=== PATIENT | female | born 2000 | race Caucasian/White ===

== ENCOUNTER 2022-07-18 09:32 | Inpatient (IN) | payer OTHER ==
[2022-07-18] MEDS ORDERED: Butorphanol Tartrate 1 MG/ML VIAL SLOW IVP PRN (10:25)
[2022-07-18] MEDS ORDERED: Lactated Ringer's 1,000 ML IV SCH ×3 (10:30→10:45)
[2022-07-18] MEDS ORDERED: hydrALAZINE 20 MG/ML VIAL SLOW IVP PRN ×2 (10:33→14:44)
[2022-07-18] MEDS ORDERED: Bicitra 30 ML UDCUP PO PRN (10:33)
[2022-07-18] MEDS ORDERED: Famotidine/PF 20 mg/2ml Vial SLOW IVP PRN (10:33)
[2022-07-18] MEDS ORDERED: Ondansetron PF 4 MG/2 ML Vial IVP PRN ×2 (10:33→13:45)
[2022-07-18] MEDS ORDERED: Promethazine HCl 25 MG/ML VIAL IM PRN ×2 (10:33→13:45)
[2022-07-18] MEDS ORDERED: CEFAZOLIN 2 GM in Sodium Chloride 0.9% 100 ML IVPB SCH (10:45)
[2022-07-18 10:53] VITALS: BMI 39.4
[2022-07-18 12:22] LABS: %Basophils 0.2 % (0.0-2.0); %Eosinophils 0.1 % (0.0-6.0); %Lymphocytes 8.3 % (18.0-47.0); %Neutrophils 85.3 % (40.0-75.0); Hemoglobin 13.4 g/dL (12.0-15.5); Mean Corpuscular HGB CONC 34.8 g/dL (32.0-36.0); Mean Corpuscular Hemoglobin 31.7 pg (27.0-33.0); Mean Platelet Volume 9.7 fl (7.4-10.4); Platelet Count 354 10x3/uL (150-450); RBC Distribution Width 13.1 % (11.5-14.5); Red Blood Cell (RBC) Count 4.23 10x6/uL (3.90-5.03)
[2022-07-18 12:44] LABS: ALT (SGPT) 50 U/L (8-55); AST (SGOT) 27 U/L (5-34); Albumin 3.2 g/dL (3.5-5.0); Alkaline Phosphatase 178 U/L (40-110); Anion Gap 16 mmol/L (10-20); BUN (Urea Nitrogen) 12 mg/dL (7.0-18.7); Bilirubin, Total 0.3 mg/dL (0.2-1.2); Calc. Creatinine Clearance 232 mL/min (70-130); Calcium 9.8 mg/dL (7.8-10.44); Carbon Dioxide 21 mmol/L (22-29); Chloride 105 mmol/L (98-107); Estimated GFR 128; Globulin 2.9 g/dL (2.4-3.5); Glucose 72 mg/dL (70-105); Potassium 4.6 mmol/L (3.5-5.1); Protein, Total 6.1 g/dL (6.0-8.3); Sodium 137 mmol/L (136-145)
[2022-07-18 12:53] LABS: Syphilis Antibody Nonreactive (Nonreactive); Syphilis Antibody Index 0.05 S/CO (<1.00 Non-Reactive)
[2022-07-18 12:55] LABS: HBSAg Index 0.15 S/CO (0-0.99); Hep B Surf Ag Non-Reactive S/CO (NonReactive)
[2022-07-18] MEDS ORDERED: Communication Order-Pharmacy FS SCH (13:45)
[2022-07-18] MEDS ORDERED: Meperidine HCl/PF 25 MG/ML VIAL SLOW IVP PRN (13:45)
[2022-07-18] MEDS ORDERED: diphenhydrAMINE 50 MG/ML VIAL IVP PRN (13:45)
[2022-07-18] MEDS ORDERED: Naloxone HCl 0.4 mg/ml Vial IV PRN (13:45)
[2022-07-18] MEDS ORDERED: Naloxone HCl 0.4 mg/ml Vial IVP PRN ×2 (13:45)
[2022-07-18] MEDS ORDERED: Promethazine HCl 25 MG SUPP PR PRN (13:45)
[2022-07-18] MEDS ORDERED: Ketorolac Tromethamine 30 MG/ML VIAL IVP SCH (13:45)
[2022-07-18] MEDS ORDERED: Moisturizing Cream (Eucerin) 113 GM JAR TOP PRN (13:45)
[2022-07-18] MEDS ORDERED: Ondansetron HCl/PF 4 MG/2 ML Vial IVP PRN (13:45)
[2022-07-18] MEDS ORDERED: Fentanyl 100 MCG/2 ML VIAL SLOW IVP PRN (13:45)
[2022-07-18] MEDS ORDERED: HYDROmorphone 2 MG/ML VIAL SLOW IVP PRN (13:45)
[2022-07-18] MEDS ORDERED: Ketorolac Tromethamine 30 MG/ML VIAL IVP PRN (13:45)
[2022-07-18] MEDS ORDERED: Fentanyl 100 MCG/2 ML VIAL ONE (14:17)
[2022-07-18] MEDS ORDERED: Morphine PF 10 MG/10 ML VIAL ONE (14:17)
[2022-07-18] MEDS ORDERED: Oxytocin 10 UNITS/ML VIAL ONE (14:17)
[2022-07-18] MEDS ORDERED: Ondansetron PF 4 MG/2 ML Vial ONE ×2 (14:17→15:40)
[2022-07-18] MEDS ORDERED: Dexamethasone 4 mg/ml Vial ONE (14:17)
[2022-07-18] MEDS ORDERED: Acetaminophen 325 MG TAB PO PRN (14:44)
[2022-07-18] MEDS ORDERED: Lanolin Ointment 7 GM TUBE TOP PRN (14:44)
[2022-07-18] MEDS ORDERED: Boostrix 0.5 ML (Tdap) VIAL (>/=7 yrs of age) IM ONE (14:44)
[2022-07-18] MEDS ORDERED: diphenhydrAMINE 25 MG CAP PO PRN (14:44)
[2022-07-18 15:41] LABS: SARS-CoV-2 NAA Rapid Test Not Detected (NotDetected)
[2022-07-18] MEDS ORDERED: Midazolam HCl 2 mg/2 ml Vial ONE (15:41)
[2022-07-18] MEDS: Ketorolac Tromethamine 30 MG/ML VIAL IVP PRN (21:49)
[2022-07-18] MEDS: Docusate 100 MG CAP PO SCH (21:52)
[2022-07-18] MEDS: Ferrous Sulfate 325 MG TAB PO SCH (22:04)
[2022-07-19] MEDS: Simethicone Chewable 80 MG TAB PO PRN (00:43)
[2022-07-19] MEDS: Ketorolac Tromethamine 30 MG/ML VIAL IVP PRN ×2 (04:14→13:56)
[2022-07-19 05:08] LABS: Hemoglobin 11.6 g/dL (12.0-15.5); Mean Corpuscular HGB CONC 34.2 g/dL (32.0-36.0); Mean Corpuscular Hemoglobin 31.3 pg (27.0-33.0); Mean Corpuscular Volume 91.4 fl (81.6-98.3); Mean Platelet Volume 9.7 fl (7.4-10.4); Platelet Count 301 10x3/uL (150-450); RBC Distribution Width 13.3 % (11.5-14.5); Red Blood Cell (RBC) Count 3.71 10x6/uL (3.90-5.03); White Blood Cell (WBC) Count 19.5 10x3/uL (3.5-10.5)
[2022-07-19] MEDS: HYDROcodone/Acetaminophen 5/325 mg Tablet PO PRN ×5 (08:24→21:41)
[2022-07-19] MEDS: Prenatal Vitamin 1 TAB PO SCH (08:25)
[2022-07-19] MEDS: Docusate 100 MG CAP PO SCH ×2 (08:25→20:20)
[2022-07-19] MEDS: Ferrous Sulfate 325 MG TAB PO SCH ×2 (09:47→21:34)
[2022-07-19] MEDS: Calcium Carbonate 500 MG ChewTAB PO PRN ×2 (13:57→20:20)
[2022-07-19] MEDS ORDERED: Ibuprofen 800 MG TAB PO SCH (14:00)
[2022-07-19] MEDS: Ibuprofen 800 MG TAB PO SCH (21:41)
[2022-07-20] MEDS: HYDROcodone/Acetaminophen 5/325 mg Tablet PO PRN ×2 (01:59→10:44)
[2022-07-20] MEDS: Calcium Carbonate 500 MG ChewTAB PO PRN (02:00)
[2022-07-20] MEDS: Simethicone Chewable 80 MG TAB PO PRN (02:01)
[2022-07-20] MEDS: Ibuprofen 800 MG TAB PO SCH (06:00)
[2022-07-20 07:44] VITALS: BP 115/55; TEMP 97.8
[2022-07-20] MEDS: Ferrous Sulfate 325 MG TAB PO SCH (10:25)
[2022-07-20] MEDS: Prenatal Vitamin 1 TAB PO SCH (10:25)
[2022-07-20] MEDS: Docusate 100 MG CAP PO SCH (10:25)
== END 2022-07-20 11:45 | disposition home or self-care (01) | DRG 787 ==
LOC: CSHLD/OP 09:32 → CSHLD 10:36 → CSHPED 18:36
PROVIDERS: ADMIT Obstetrics & Gynecology; ATTEND Obstetrics & Gynecology
PROC: 10D00Z1 Extraction of Products of Conception, Low, Open Approach (ICD-10-PCS; principal; 2022-07-18)
DX: O34.211 Maternal care for low transverse scar from previous cesarean delivery (principal); O98.52 Other viral diseases complicating childbirth; Z20.822 Contact with and (suspected) exposure to COVID-19; Z3A.39 39 weeks gestation of pregnancy; Z37.0 Single live birth; B00.9 Herpesviral infection, unspecified; Z79.899 Other long term (current) drug therapy; Z83.3 Family history of diabetes mellitus; Z82.49 Family history of ischemic heart disease and other diseases of the circulatory system; Z87.891 Personal history of nicotine dependence; F41.9 Anxiety disorder, unspecified; O99.344 Other mental disorders complicating childbirth; N73.6 Female pelvic peritoneal adhesions (postinfective); O99.892 Other specified diseases and conditions complicating childbirth; O69.81X0 Labor and delivery complicated by cord around neck, without compression, not applicable or unspecified
CPT/HCPCS: 36415; 51702; 80053; 85025; 85027; 86780; 86850; 86900; 86901; 87340; 99285; J0595; J1100; J1885; J2250; J2274; J2405; J2550; J2590; J3010; J3490; J7120; U0002